=== PATIENT | female | born 1965 | race Caucasian/White ===

== ENCOUNTER → 2020-11-15 10:38 | Outpatient (BNVA) | payer OTHER, SELFPAY | PROVIDERS: Family Provider Family Medicine; PCP Family Medicine; Visit Provider Internal Medicine | DX: I25.700 Atherosclerosis of coronary artery bypass graft(s), unspecified, with unstable angina pectoris; Z20.822 Contact with and (suspected) exposure to COVID-19 | CPT/HCPCS: 80048; 85025; 87635 ==

== ENCOUNTER 2020-11-19 06:03 | Day surgery (SDC) | payer OTHER, SELFPAY ==
[2020-11-19] VITALS (15 sets, daily range): BP systolic 140–214; BP diastolic 71–111; PULSE 71–88; RESP 12–21; TEMP 36.7; O2SAT 94–98; BMI 25.8
--- NOTE | 2020-11-19 06:00 | XACV_ITS ---
Ht: 150 cm Wt: 79 kg BSA: 1.86 m2 Gender: Female : 1965 Any Known Allergies: No known allergies Exam Priority: Routine Procedure(s): Procedure Description: Diagnostic procedure Procedure Description: Left Heart Catheterization Procedure Description: Right Heart Catheterization Procedure Description: Aortogram Procedure Description: Venous Graft Catheterization Procedure Description: STEWARD Graft Catheterization Procedure Description: O2 saturation Procedure Description: Coronary Angiography Diagnostic Cath Status: Elective Diagnostic Findings * Left Main has severe 60% distal vessel disease. * Right Coronary Artery has diffuse luminal irregularities. * Right heart cath findings: RA pressure: 14/16/ 15 mmHg PCW: 19/21/19 mmhg RV: 51 /3/14 mmhg PA: 51/26/35 mmhg TP Cardiac output 3 Cardiac index 2 AO sat 93% PA sat 63% PVR: 5.3 Wood units Mixed moderate pulmonary hypertension . * Proximal Left Anterior Descending: severe 90% stenosis, ARELI: 3 flow. * Left Internal Mammary Artery to Distal Left Anterior Descending graft: patent. * Proximal Circumflex: total occlusion, ARELI: 0 flow. * Ascending Aorta to 1st Diagonal graft: patent. * Ascending Aorta to First Obtuse Marginal Branch Segment graft: patent. * Three grafts visualized. * Coronary angiography shows right dominance. Conclusions 1. Severe multivessel 2. cachil dehe coronary artery disease. 3. Patent RCA. Patent SVG to OM and SVG to diagonal artery. Patent STEWARD to LAD. 4. Elevated right and left-sided cardiac pressures. Moderate mixed pulmonary hypertension noted. 5. Three coronary grafts visualized: all grafts patent. 6. Patient has prior CABG. Recommendations * Aggressive risk factor modification. * Diuretics as patient has elevated right and left-sided cardiac pressures. * If patient continues having chest pain, Imdur can be started. * Follow-up in cardiology clinic in 1 month. Interventional RX Recommendation: medical therapy and/or counseling Diagnostic RX Recommendation: medical therapy and/or counseling Pressures Phase:Rest AO : 199 / 89 ( 130 ) @ 7:01:00 AM 241 / 132 ( 131 ) @ 7:02:00 AM 172 / 91 ( 128 ) @ 7:23:00 AM 194 / 49 ( 91 ) @ 7:35:00 AM LV : 197 / -1 / 31 @ 7:34:00 AM 201 / -4 / 26 @ 7:35:00 AM RV : 51 / 3 / 14 @ 6:57:00 AM PA : 32 / 21 ( 25 ) @ 6:55:00 AM 51 / 26 ( 35 ) @ 6:56:00 AM RA : a wave = 14 v wave = 16 mean = 15 @ 6:58:00 AM PCW : a wave = 19 v wave = 21 mean = 19 @ 6:54:00 AM O2 Content Phase:Rest PA : O2 Content O2: 62.7 @ 7:02:00 AM Saturations Phase:Rest AO : 93 @ 7:01:00 AM PA : 63 @ 7:02:00 AM Cardiac Output Phase:Rest Mariza : 3 @ 8:50:32 AM Mariza Cardiac Index: 2 @ 8:50:32 AM Flow Phase:Rest Qp : 3 @ 8:50:32 AM Qs : 3 @ 8:50:32 AM Clinical Evaluation EBL: 5mL-10mL Procedural Details Procedure Consent Obtained. Pre-Procedure Time Out. Identified patient by full name and date of as verbalized by the patient/guarantor. Does the consent match the physician's order: Yes. Accurate & Complete Informed Consent: Yes. Inpatient/Outpatient History & Physical on Chart: Yes. If H&P is completed, is and addenduem needed: No; If yes, is the addendum complete: N/A. Visualize and Verify Site with Patient/Guarantor: N/A. Relevant Radiology Images available: Yes. Pre-op teaching completed and patient verbalized understanding. The risks, benefits, and alternatives of sedation and/or procedure were discussed by physician. The patient agrees to continue. Procedure started. [facility] Clinical Fraility Score: 3: Managing Well. Sample Grader Indications: Worsening angina. Chest Pain Symptom Assessment: Typical chest pain. Correct patient, site and procedure confirmed by cath team. PERRLA. Strong, equal hand chrome plater bilaterally. Lungs clear x 5 lobes. IV Site on Arrival: 18 gauge in the right anticubital. IV Site on Arrival: 18 gauge in the left anticubital. IV Fluids: 0.9% NaCl at KVO. 0 mL infused prior to blood bank laboratory technologist. bilateral groins was prepped with chloroprep then draped in the usual sterile fashion. Baseline sample Acquired. HR: 74 BPM. Physician notified. Physician arrived. Tk Mock assisting with scrubbing. [place] Coppola circulating. Physician scrubbed in. Immediate Pre-Procedure Time Out. Correct Patient: Yes; Correct Procedure: Yes; Correct Site: Yes; Correct Patient Position: Yes; Correct Supplies: Yes; Dried Flammable Prep: Yes; Blood Products Available: N/A;. Lidocaine 1% infiltrated to the right groin. Arterial access obtained with micropuncture set. Venous access obtained with a micropuncture set. [place] MON catheter inserted. Oximetry samples were obtained. Normal venous range: 60-85%. Normal arterial range: 95-100%. Pressure measurements obtained. [place] out. A 5 sudanese JL4 catheter in over wire. Multiple views taken of left coronary artery. Catheter removed over the standard wire. A 5 sudanese JR4 catheter in over wire. Oxygen started at 2liters/min via nasal canula. Multiple views taken of right coronary artery. STEWARD to LAD visualized. Catheter removed over the standard wire. A 6 sudanese AL1 catheter in over wire. Catheter removed over the standard wire. A 5 sudanese JR5 catheter in over wire. SVG's to Diaganol and OM visualized and patent. Catheter removed over the standard wire. A 5 sudanese LCB catheter in over wire. Catheter removed over the standard wire. A 5 sudanese Angled Pig catheter in over wire. EDP Sample taken: LV 197/-2,31; HR: 74 BPM; SpO2: 95%. EDP Sample taken: LV 201/-5,26; HR: 75 BPM; SpO2: 97%. Pullback taken: LV Off; AO Off; Mean: , Peak to Peak: , SEP: ; HR: 84 BPM; SpO2: 97%. Aortogram performed in AP @ 20 mL/second for a total of 40 mL. Catheter removed over the standard wire. Physician review of cine films. Catheter out. A Right femoral angiogram was performed to determine safe placement of closure device. Angioseal Lot #[id number] placed without complications. No signs or symptoms of hematoma noted. Sterile dressing applied per usual sterile fashion. A Angio-Seal VIP ([place]) was successful obtaining hemostatsis at the Right Femoral artery insertion site. Venous Sheath(s) removed and manual pressure held until hemostasis was achieved. Sterile 4x4 and Op-site applied to the puncture site. No oozing or hematoma noted. Post sheath removal instructions were given and the patient verbalized understanding. A Manual Compression was successful obtaining hemostatsis at the Right Femoral vein insertion site. Post Procedure: Pulses reassessed and unchanged. PERRLA. Strong, equal hand chrome plater bilaterally. No VTE prophylaxis required. Medication's Wasted: Heparin = 5000 units. Contrast type used: Omnipaque 300 mgI/mL, 500 mL bottle. Complications: None. Total IV fluids: 93.1 mL. Estimated blood loss: 5mL-10mL. Procedure completed. Patient transferred by stretcher to CPRU. Vital chart was stopped. Access Site Site: Right Femoral artery Sheath Size: 6 Fr Hemostasis Method: Angio-Seal VIP ([place]) Hemostasis Success: Successful Site: Right Femoral vein Sheath Size: 6 Fr Hemostasis Method: Manual Compression Hemostasis Success: Successful Procedure Medications Start: 7:33 AM Stop: 7:33 AM Medication: Versed Amount: 1 mg Route: I.V. Start: 7:33 AM Stop: 7:33 AM Medication: Fentanyl Amount: 50 mcg Route: I.V. Start: 7:42 AM Stop: 7:42 AM Medication: Versed 1 mg and Fentanyl 25 mcg Amount: 1 Route: I.V. Start: 8:01 AM Stop: 8:01 AM Medication: Hydralazine Amount: 10 mg Start: 8:04 AM Stop: 8:04 AM Medication: Versed Amount: 1 mg Route: I.V. Start: 8:33 AM Stop: 8:33 AM Medication: Versed Amount: 1 mg Route: I.V. Start: 8:33 AM Stop: 8:33 AM Medication: Hydralazine Amount: 10 mg Start: 8:35 AM Stop: 8:35 AM Medication: Fentanyl Amount: 25 mcg Route: I.V. I, the attending physician, have reviewed and verified all procedure medications. Yes, all medications given per verbal order History/Risk Factors Hypertension: Yes Dyslipidemia: Yes Peripheral Arterial Disease (PAD): Yes Myocardial Infarction ([place]): No Obesity: Yes Renal Disease: No Prior Interventions CABG: Yes Valve Surgery: Yes Report Signatures Finalized by Oleg Puri MD on 12/03/2020 06:19 PM
[2020-11-19] MEDS: diphenhydrAMINE 50 mg Capsule PO (07:00)
--- NOTE | 2020-11-19 07:27 | W.PM.OPSUD ---
Surgery/Procedure H&P Update DATE OF PROCEDURE: November 19, 2020 DATE H&P PERFORMED: 11/04/20 H&P UPDATE INFORMATION: I have reviewed H&P completed within last 30 days, I have examined patient prior to procedure and No changes to prior documentation PREOP DIAGNOSIS: Worsening angina PRIMARY INDICATION FOR PROCEDURE: Worsening angina PLANNED PROCEDURE: Operation Date: 11/19/20 07:00 Proposed Procedures p left and right Cardiac Catheterization 57434 I20.0(Bilateral) - Oleg Puri M.D Possible percutaneous coronary intervention PATIENT REASSESSED PRIOR TO SEDATION, WITH NO CHANGE NOTED: Yes PHYSICAL EXAM: alert, oriented x 3 and clear to auscultation bilaterally AIRWAY EVAL/ANESTHESIA PLAN: ASA III, Monitored Anesthesia, Local Anesthesia, Risks, benefits & alternatives of sedation and/or procedure discussed and Patient agrees to continue as planned
[2020-11-19 08:03] LABS: Blood Gas Allen Test Pos; Blood Gas Sample Type Venous
[2020-11-19 08:31] LABS: Blood Gas Sample Site NS; Oxygen Device NS
--- NOTE | 2020-11-19 09:00 | SUR.PHASEII ---
POST CATH NOTE Received patient from laboratory manager. Status post right and left cardiac catheterization from the right femoral approach. Sheaths removed SALES OPERATIONS DIRECTOR. Right access sites hemostatic with not s/s of active bleeding present at this time. Verbal post cath instructions given. Verbalized understanding. See vital sign record and flowsheet for details of assement. Call light in reach. Informed to call for needs.
--- NOTE | 2020-11-19 09:10 | SUR.PHASEII ---
post op fluids 0.9% NS AT 150 ML/HR as ordered.
[2020-11-19 10:00] LABS: ABG PCO2 57.4 mmHg (35-45); ABG PH Result 7.28 (7.35-7.45); Arterial Blood Gas Hematocrit 39.3 % (37-47); Base Excess ABG -1.1 mmol/L (-2.0-2.0); HCO3 ABG 26.7 mmol/L (22-26); PO2 ABG 36.6 mmHg (80.0-100.0)
[2020-11-19 10:01] LABS: Blood Gas Operator Identificat CAK
== END 2020-11-19 14:19 | disposition home or self-care (01) ==
PROVIDERS: PCP Family Medicine; Visit Provider Internal Medicine
DX: I25.110 Atherosclerotic heart disease of native coronary artery with unstable angina pectoris (principal); I27.20 Pulmonary hypertension, unspecified; Z95.1 Presence of aortocoronary bypass graft; E11.9 Type 2 diabetes mellitus without complications; Z79.82 Long term (current) use of aspirin; Z79.84 Long term (current) use of oral hypoglycemic drugs; F41.9 Anxiety disorder, unspecified; E78.5 Hyperlipidemia, unspecified; I10 Essential (primary) hypertension
CPT/HCPCS: 36415; 82803; 93461; C1751; C1769; C1887; C1894; J0360; J1644; J2250; J3010; J3490; J7030; Q0163; Q9967

== ENCOUNTER 2022-11-14 20:43 | Emergency (ER) | payer OTHER, SELFPAY ==
[2022-11-14 20:51] VITALS: BP 151/80; PULSE 83; RESP 20; TEMP 36.6; O2SAT 97; BMI 32.1
--- NOTE | 2022-11-14 21:05 | USR_ITS ---
PROCEDURE INFORMATION: Exam: US Duplex Bilateral Lower Extremity Arteries Exam date and time: 11/14/2022 9:46 PM Age: 57 years old Clinical indication: Pain; Leg, lower; Right; Prior surgery; Surgery date: 6+ months; Surgery type: Lt fem pop TECHNIQUE: Imaging protocol: Real-time ultrasound scan of the arteries of the bilateral lower extremities with 2-D romeo scale, color Doppler flow and spectral waveform analysis. Images documented and saved. COMPARISON: No relevant prior studies available. FINDINGS: Right external iliac artery: Right external iliac artery demonstrates mild atherosclerosis. No high-grade stenosis demonstrated. Right common femoral artery: No occlusion or significant stenosis. Normal waveform. Right superficial femoral artery: Diffuse atherosclerosis. Elevated velocity of 289 cm/s noted in the mid right SFA consistent with high-grade stenosis. Poststenotic waveforms are demonstrated in the distal SFA. Right popliteal artery: Poststenotic monophasic waveforms are noted. Elevated velocities of 155 cm/s are noted which may indicate focal stenosis. Right calf/foot arteries: Right posterior tibial artery is occluded. Dorsalis pedis artery is patent, with poststenotic waveforms demonstrated. Left external iliac artery: Left external iliac artery is patent, and demonstrates normal waveforms. Left common femoral artery: Left femoral to popliteal artery bypass graft. The graft is patent. Left superficial femoral artery: Left femoral to popliteal artery bypass graft. The graft is patent. Left popliteal artery: Moderately elevated velocities suggesting focal stenosis. Monophasic waveform with aliasing noted waveform. Left calf/foot arteries: Dorsalis pedis artery is patent with elevated velocities and monophasic waveform. Posterior tibial artery is occluded, according to technologist note. US/CV arterial duplex [facility] [id number] IMPRESSION: 1. Findings are consistent with diffuse right superficial femoral artery disease at least 1 focal high-grade stenosis of the right SFA. 2. Left femoral to popliteal artery bypass graft. The graft appears patent. 3. Probable moderate stenosis in the left popliteal artery. 4. There is bilateral infrapopliteal disease demonstrated, as above.
[2022-11-14] MEDS: ondansetron 2 mg/ML SDV 2 mL 4 MG IVP (21:38)
[2022-11-14] MEDS: HYDROmorphone 1 mg/mL INJ 1 mL IVP (21:40)
[2022-11-14 21:41] LABS: Basophils % 0.5 %; Eosinophils # 0.2 10^3/uL (0.0-0.8); Eosinophils % 2.8 %; Hematocrit 36.6 % (37.0-47.0); Hemoglobin 11.7 g/dL (11.5-15.3); Lymphocytes # 1.9 10^3/uL (0.8-4.8); Lymphocytes % 23.4 %; Mean Corpuscular Volume 90.8 fl (81-99); Mean Platelet Volume 12.9 fL (7.4-10.4); Monocytes # 0.8 10^3/uL (0.2-0.9); Monocytes % 9.8 %; Neutrophils # 5.18 10^3/uL (1.8-7.7); Neutrophils % 63.3 %; Nucleated Red Blood Cells % 0 %; Platelet Count 239 10^3/cmm (130-400); Red Blood Count 4.03 10^6/uL (4.1-5.3); Red Cell Distribution Width 12.8 % (12.1-15.1); White Blood Count 8.2 10^3/uL (4.0-10.0)
[2022-11-14 21:44] VITALS: PULSE 82; RESP 24; O2SAT 97
[2022-11-14 21:49] LABS: INR 0.92 (0.8-1.2)
[2022-11-14 22:00] LABS: Alanine Aminotransferase 12 U/L (0-33); Albumin Level 3.9 g/dL (3.5-5.2); Alkaline Phosphatase 56 U/L (35-105); Anion Gap 16.1 (5-19); Aspartate Amino Transferase 16 U/L (0-32); Blood Urea Nitrogen 28 mg/dL (6-20); Calcium 9.3 mg/dL (8.5-10.5); Carbon Dioxide 29 mmol/L (22-29); Chloride 99 mmol/L (98-107); Globulin 2.8 g/dL (1.3-4.6); Glomerular Filtration Rate 74.5 mL/min (90-130); Glucose 133 mg/dL (65-115); Osmolality Calculated 297 mOsm/kg (285-295); Potassium 4.1 mmol/L (3.5-5.1); Sodium 140 mmol/L (136-145); Total Bilirubin 0.2 mg/dL (0.15-1.2); Total Protein 6.7 g/dL (6.6-8.7)
--- NOTE | 2022-11-14 22:02 | W.ED.EXTPRO ---
HPI - Extremity Problem General: Chief complaint: Extremity Problem,Nontraumatic Stated complaint: both legs/feet pain Time Seen by Provider: 11/14/22 21:09 Source: patient Mode of arrival: ambulatory Limitations: no limitations History of Present Illness: 57-year-old female has a history of peripheral vascular disease she states that she is had a CT runoff at [facility] that showed some blockages in her arteries in her right leg she states she is scheduled to see a vascular surgeon next week states she been on her feet was having increasing pain and swelling to her right foot and her left foot but more on the right side pains a 7 out of 10. States she had some slight redness that foot but it has been chronic no necrosis Associated symptoms: Deny chest pain, fever(s) or rash Review of Systems Const: Denies: fever(s) or chills ENMT: Denies: throat pain or dental pain Card: Denies: chest pain Resp: Denies: dyspnea GI: Denies: abdominal pain, nausea, vomiting or diarrhea Musc: Denies: neck pain or back pain Skin/Breast: Denies: rash Neuro: Denies: headache(s) PFSH ED PFSH: Medical History Anxiety Coronary artery disease Diabetes Hyperlipidemia Hypertension Surgical History Hx of CABG Social History Smoking and tobacco status: never smoked Alcohol intake: never Substance/Drug Use: never Physical Exam Const: COMMON NORMALS: no acute distress, patient oriented x3 and healthy appearing HENMT: COMMON NORMALS: normocephalic and atraumatic HEAD & SCALP: normocephalic and atraumatic Neck/C-Spine: COMMON NORMALS: full ROM and supple Chest: COMMONS NORMALS: normal inspection of the chest and normal palpation of entire chest wall Resp: COMMON NORMALS: normal respiratory effort, No retractions, No use of accessory muscles and clear to auscultation bilaterally AUSCULTATION: clear to auscultation bilaterally Cardio: COMMON NORMALS: regular rate, regular rhythm and No murmurs present (Cardio) RATE: regular rate RHYTHM: regular rhythm GI: COMMON NORMALS: Normal to inspection, nondistended, normoactive bowel sounds present, Soft to palpation, non-tender and no masses PALPATION: Yes Soft to palpation Extremity: OTHER: She is got tenderness to touch to bilateral lower extremities slight erythema no necrosis Neuro: COMMON NORMALS: patient oriented x3, moves all extremities and no focal motor deficits Psych: COMMON NORMALS: mental status grossly normal, Normal thought process present and cooperative THOUGHT PROCESS: Normal thought process present Skin: COMMON NORMALS: no rashes or lesions noted and no wounds GENERAL SKIN EXAM: no rashes or lesions noted Course Vital Signs: Vital signs: Vital Signs Temperature 97.8 F 11/14/22 20:51 Pulse Rate 82 11/14/22 21:44 Respiratory Rate 24 H 11/14/22 21:44 Blood Pressure 151/80 11/14/22 20:51 Pulse Oximetry 97 11/14/22 21:44 Oxygen Delivery Me thod Room Air 11/14/22 21:44 MDM - Extremity (Nontraumatic) Medical Decision Making Patient presents here with leg pain likely primary peripheral vascular disease her pain is now resolved I did speak to vascular surgery at [facility] who had access to her recent CT runoff findings were consistent with her arterial ultrasound here with no new findings vascular surgery recommended for her to keep her follow-up next week she is to continue her Plavix aspirin we will write her pain meds she is stable for discharge Medical Records I reviewed the patient's medical records. Lab Data I reviewed the patient's lab results. 11/14/22 21:19 11/14/22 21:19 Radiology Impressions Duplex Scan Lower Extremity Artery 11/14/22 21:05 IMPRESSION: 1. Findings are consistent with diffuse right superficial femoral artery disease at least 1 focal high-grade stenosis of the right SFA. 2. Left femoral to popliteal artery bypass graft. The graft appears patent. 3. Probable moderate stenosis in the left popliteal artery. 4. There is bilateral infrapopliteal disease demonstrated, as above. Laboratory Results WBC 8.2 10^3/uL (4.0-10.0) 11/14/22 21:19 RBC 4.03 10^6/uL (4.1-5.3) L 11/14/22 21:19 Hgb 11.7 g/dL (11.5-15.3) 11/14/22 21:19 Hct 36.6 % (37.0-47.0) L 11/14/22 21:19 MCV 90.8 fl (81-99) 11/14/22 21:19 MCH 29.0 pg (28.0-34.0) 11/14/22 21:19 MCHC 32.0 g/dL (30.0-36.0) 11/14/22 21:19 RDW 12.8 % (12.1-15.1) 11/14/22 21:19 Plt Count 239 10^3/cmm (130-400) 11/14/22 21:19 MPV 12.9 fL (7.4-10.4) H 11/14/22 21:19 Neut % (Auto) 63.3 % 11/14/22 21:19 Lymph % (Auto) 23.4 % 11/14/22 21:19 [place] % (Auto) 9.8 % 11/14/22 21:19 Eos % (Auto) 2.8 % 11/14/22 21:19 Baso % (Auto) 0.5 % 11/14/22 21:19 Neut # (Auto) 5.18 10^3/uL (1.8-7.7) 11/14/22 21:19 Lymph # (Auto) 1.9 10^3/uL (0.8-4.8) 11/14/22 21:19 [place] # (Auto) 0.8 10^3/uL (0.2-0.9) 11/14/22 21:19 Eos # (Auto) 0.2 10^3/uL (0.0-0.8) 11/14/22 21:19 Baso # (Auto) 0.0 10^3/uL (0.0-0.1) 11/14/22 21:19 Nucleated RBC % (auto) 0 % 11/14/22 21:19 Nucleated RBCs # 0.0 /100WBC 11/14/22 21:19 PT 12.60 SECONDS (12.1-14.9) 11/14/22 21:19 INR 0.92 (0.8-1.2) 11/14/22 21:19 Sodium 140 mmol/L (136-145) 11/14/22 21:19 Potassium 4.1 mmol/L (3.5-5.1) 11/14/22 21:19 Chloride 99 mmol/L (98-107) 11/14/22 21:19 Carbon Dioxide 29 mmol/L (22-29) 11/14/22 21:19 Anion Gap 16.1 (5-19) 11/14/22 21:19 BUN 28 mg/dL (6-20) H 11/14/22 21:19 Creatinine 0.8 mg/dL (0.5-0.9) 11/14/22 21:19 GFR Calculation 74.5 mL/min (90-130) L 11/14/22 21:19 Glucose 133 mg/dL (65-115) H 11/14/22 21:19 Calculated Osmolality 297 mOsm/kg (285-295) H 11/14/22 21:19 Calcium 9.3 mg/dL (8.5-10.5) 11/14/22 21:19 Total Bilirubin 0.2 mg/dL (0.15-1.2) 11/14/22 21:19 AST 16 U/L (0-32) 11/14/22 21:19 ALT 12 U/L (0-33) 11/14/22 21:19 Alkaline Phosphatase 56 U/L (35-105) 11/14/22 21:19 Total Protein 6.7 g/dL (6.6-8.7) 11/14/22 21:19 Albumin 3.9 g/dL (3.5-5.2) 11/14/22 21:19 Globulin 2.8 g/dL (1.3-4.6) 11/14/22 21:19 Discharge Plan Discharge Patient Disposition: Home Clinical Impression: Peripheral vascular disease, Chronic leg pain Condition: Stable Prescriptions: New hydrocodone-acetaminophen 5-325 mg tablet 1 tab PO Q6H PRN (Reason: pain) Qty: 14 0RF No Action Jardiance 25 mg tablet 25 mg PO DAILY glimepiride 4 mg tablet 4 mg PO DAILY lansoprazole [Prevacid] 30 mg capsule,delayed release(DR/EC) 30 mg PO DAILY clopidogrel 75 mg tablet 75 mg PO DAILY lisinopril 20 mg tablet 20 mg PO DAILY metformin 1,000 mg tablet 1,000 mg PO BID meloxicam 15 mg tablet 15 mg PO DAILY metoprolol tartrate 25 mg tablet 25 mg PO BID atorvastatin 20 mg tablet 20 mg PO DAILY aspirin [Adult Low Dose Aspirin] 81 mg tablet,delayed release (DR/EC) 81 mg PO DAILY acetaminophen 325 mg capsule 325 mg PO QID PRN (Reason: Pain) ranolazine [Ranexa] 500 mg tablet extended release 12 hr 500 mg PO BID Qty: 90 3RF furosemide [Lasix] 20 mg tablet 20 mg PO BID Qty: 90 1RF Discharge Orders: Discharge ED (Routine); Ordered 11/15/22 Ordered By: Eloisa Landers Referrals: Fariha Gregg DO [Primary Care Provider] - Discharge Diet: Advance as tolerated Discharge Activity: Resume usual activity Patient Instructions: Peripheral Vascular Disease (ED) Coding Level of Care Code ED Banquet Line Cook for Clarissa Orlando
[2022-11-14 22:33] VITALS: BP 124/81; PULSE 80; O2SAT 92
[2022-11-14 23:33] VITALS: BP 125/63; PULSE 75; O2SAT 90
--- NOTE | 2022-11-15 00:20 | PC.NURSE ---
PT SENT HOME WITH 2X TABS OF [employer]visor[employer] / PER MD ORDERS.
== END 2022-11-15 00:17 | disposition home or self-care (01) ==
PROVIDERS: Emergency Provider Emergency Medicine; PCP Family Medicine
DX: I73.9 Peripheral vascular disease, unspecified (principal); G89.29 Other chronic pain; Z79.84 Long term (current) use of oral hypoglycemic drugs; Z79.02 Long term (current) use of antithrombotics/antiplatelets; Z79.82 Long term (current) use of aspirin; I25.10 Atherosclerotic heart disease of native coronary artery without angina pectoris; E11.9 Type 2 diabetes mellitus without complications; E78.5 Hyperlipidemia, unspecified; I10 Essential (primary) hypertension
CPT/HCPCS: 36415; 80053; 85025; 85610; 93925; 96374; 96375; 99284; J1170; J2405